=== PATIENT | male | born 1955 | race Caucasian/White ===

== ENCOUNTER 2017-10-09 11:34 | Inpatient (IN) | payer MEDICARE, BC, OTHER ==
[~2017-10-09] VITALS: Ht 185.4 cm; Wt 54.4 kg
[~2017-10-09 11:34] MED LIST: ADDERALL 30 MG30 MG PO; LORATIDINE 10 M10 M1 PO; PERCOCET 7.5-31 EACH; VENLAFAXINE HC150 MG PO; VENTOLIN HFA 1818 GM INH; ZPAK PO
[2017-10-09] MEDS ORDERED: TYLENOL EXTRA500 MG PO (14:25)
[2017-10-09] MEDS ORDERED: XANAX1 MG PO (14:27)
[2017-10-09] MEDS ORDERED: COLACE100 MG PO (14:29)
[2017-10-09] MEDS ORDERED: ADVAIR HFA 230M12 GM INH (14:33)
[2017-10-09] MEDS ORDERED: NICOTINE TRANSD21 M1 (14:36)
[2017-10-09] MEDS ORDERED: DUONEB 2.5-0.5 M3 ML INH (14:36)
[2017-10-09] MEDS ORDERED: OXYCODONE HCL 55 MG PO (14:38)
[2017-10-09] MEDS ORDERED: MIRALAX17 GM PO (14:39)
[2017-10-09] MEDS ORDERED: FLOMAX0.4 MG PO (14:39)
[2017-10-09 14:40] VITALS: BP 120/58
[2017-10-09] MEDS ORDERED: EFFEXOR XR75 MG PO (14:41)
[2017-10-09] MEDS ORDERED: AMBIEN 5 MG TABL5 M1 PO (14:44)
--- NOTE | 2017-10-09 18:41 | NUR ---
PT RESTS IN BED AND IS REPOSITIONED. PT EATING SUPPER NOW AND FEEDS SELF. PT ALERT AND PLESANT BUT IS [place]. DRESSING TO RT. HIP DRY AND INTACT. PT HAS VOIDED PER URINAL CLEAR YELLOW URINE. PT IS ON ROOM AIR AND DENIES SOB. PT ORIENTATED TO ROOM AND CONTROLS AND REHAB PROGRAM. PT DENIES NEEDS AT PRESENT.
[2017-10-09 20:17] VITALS: BP 98/50
--- NOTE | 2017-10-09 22:47 | NUR ---
ASSUMED CARES AT 1915. PT ALERT AND ORIENTED. WAS PLEASANT EARLER BUT AT 2200, PT TRIED TO GET OUT OF BED. PT EXPRESSED FRUSTRATION AND MADE STATEMENTS ABOUT WANTING TO LEAVE SO THAT HE COULD GO SMOKE. PT ALSO UNABLE TO REACH AND WAS GETTING UPSET. PT APPEARED TO HAVE SPILLED URINAL IN BED AND ON HIMSELF. WAS INITIALLY NOT COOPERATIVE WITH CHANGING OF BED SHEETS AND CLOTHES. PT NEEDED MUCH COAXING AND REDIRETING BEFORE AGREEABLE TO CHANGE CLOTHES AND GET BACK INTO BED. PT AGREED TO TAKING XANAX AND SO THIS WAS GIVEN. LEFT MESSAGE FOR TO CALL. PT IN BED AT THIS TIME. WILL CONTINUE TO MONITOR.
[2017-10-10 04:10] LABS: HEMATOCRIT 28.5 % (42.0-52.0); HEMOGLOBIN 9.4 gm/dL (14.0-18.0); MCH 26.3 pg (26.0-34.0); MCHC 32.8 g/dL (28.0-37.0); MCV 80.3 fL (80.0-100.0); MPV 7.4 fl. (7.2-11.1); RBC 3.55 mil/uL (4.50-6.00); RDW-CV 17.5 % (10.5-14.5); WBC 13.7 thou/uL (4.0-11.0)
[2017-10-10 04:25] LABS: CALCIUM 8.2 mg/dL (8.5-10.1); CREATININE 0.7 mg/dL (0.6-1.3)
--- NOTE | 2017-10-10 05:17 | NUR ---
PT SLEPT REST OF THE NIGHT AFTER XANAX GIVEN. REFUSED NIGHT TIME NEB TX. C/O BACK PAIN. TAKES PILLS WHOLE WITHOUT ISSUES. HE IS A MOD ASSIST WITH GAIT BELT AND WALKER. S/P RIGHT HIP FRACTURE. WBAT RLE. POSTERIOR HIP PRECAUTIONS. DRESSING TO RIGHT HIP INTACT. RIGHT ELBOW ABRASION. DRESSING WAS CHANGED AND PICTURE TAKEN. HAS OWN KNEE HIGH TEDS THAT WERE REMOVED AT HS. PT USED URINAL AND STAFF EMPTIED. CALL LIGHT IN REACH AND BED ALARM ON.
[2017-10-10 07:46] VITALS: BP 109/57
[2017-10-10 07:59] VITALS: BP 109/57
--- NOTE | 2017-10-10 15:33 | NUR ---
I have reviewed the documentation by ROBBIE FRAGOSO from 10/10/17 to 10/10/17 and I concur with it. CARO PRESTON
--- NOTE | 2017-10-10 15:37 | NUR ---
I have reviewed the documentation by ROBBIE FRAGOSO from 10/10/17 to 10/10/17 and I concur with it. CARO PRESTON
--- NOTE | 2017-10-10 17:09 | NUR ---
PT HAS BEEN UP TO RECLINER AND CALLS FOR ASSIST NEEDED.PT TRANSFERRS WITH MIN ASSIST OF 1,WALKER AND GAITBELT. DRESSING TO RT. HIP DRY AND INTACT.MEPLIX TO RT. SKIN TEAR ELBOW INTACT. PRN FOR PAIN GIVNE WITH GOOD EFFECT. PT VOIDS WELL PER URINAL. PT TOLERATES MEALS AND EATS IN DINNINGROOM. PT ALERT AND ORIENTATED BUT IS LIME AND THIS CAN CAUSE HIM TO NOT UNDERSTAND DIRECTIONS. PT HAS WORKED WITH THERAPIES TODAY AND VISITED WITH . HAS BROUGHT IN PT'S ADDEREL MEDICATION FROM HOME WITH PHARMACY TO CONFIRMED MED. PT ALERT AND ORIENTATED AND ABLE TO VOICE NEEDS.
[2017-10-10 20:33] VITALS: BP 101/57
--- NOTE | 2017-10-10 20:55 | NUR ---
RESTING QUIETLY IN BED. LOOSE COUGH. SWALLOWS SPUTUM. TOOK MEDS WHOLE WITH WATER. RIGHT HIP DRESSING INTACT WITH MODERATE AMOUNT OF DRIED DRAINAGE. URINAL AND CALL LIGHT WITHIN REACH. STATES SOME RELIEF FROM PAIN MEDS GIVEN AT END OF DAY SHIFT. 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 MENTHOLATUM APPLIED TO BACK.
[2017-10-11 05:06] LABS: HEMATOCRIT 24.5 % (42.0-52.0); HEMOGLOBIN 8.3 gm/dL (14.0-18.0); MCH 27.1 pg (26.0-34.0); MCV 79.8 fL (80.0-100.0); MPV 7.4 fl. (7.2-11.1); RBC 3.07 mil/uL (4.50-6.00); RDW-CV 17.4 % (10.5-14.5); WBC 9.9 thou/uL (4.0-11.0)
--- NOTE | 2017-10-11 05:09 | NUR ---
RESTED QUIETLY UNTIL ABOUT 0450. INCONTINENT OF URINE WHICH SPILLED OVER TO PJ'S AND INCONTINENT PAD. NO FURTHER C/O PAIN. HOURLY ROUNDING IN PROGRESS.
[2017-10-11 05:12] LABS: ALBUMIN 1.7 g/dL (3.4-5.0); CALCIUM 7.9 mg/dL (8.5-10.1); CREATININE 0.8 mg/dL (0.6-1.3); POTASSIUM 4.6 mmol/L (3.5-5.1); TOTAL BILIRUBIN 0.2 mg/dL (<0.1-1.0)
[2017-10-11 07:59] VITALS: BP 94/73
--- NOTE | 2017-10-11 15:11 | NUR ---
I have reviewed the documentation by ROBBIE FRAGOSO from 10/11/17 to 10/11/17 and I concur with it. CARO PRESTON
[2017-10-11 15:17] LABS: % SATURATION 12 % (20-39); IRON 18 ug/dL (50-175)
--- NOTE | 2017-10-11 16:32 | NUR ---
SW met with pt to review team conference summary. Plan for pt to remain on rehab and participate in therapies and for team to reassess pt length of stay during team conference next Wednesday 10/18. Pt in agreement with plan. SW to continue to follow to assist with safe dc planning.
--- NOTE | 2017-10-11 17:58 | NUR ---
ASSUMED CARE AT 0730 PATIENT ALERT/ORIENTED, UP WITH ASSIST OF ONE AND WALKER/GAIT BELT. PAIN MEDS GIVEN PRN FOR CHRONIC BACK PAIN, BED/CHAIR ALARMS IN PLACE, DRESSING TO RIGHT HIP C/D/I, HOURLY ROUNDING COMPLETED, TO DINING ROOM FOR MEALS, PARTICIPATED IN ALL THERAPIES TODAY. CALL LIGHT IN REACH. CONTINUE WITH CURRENT PLAN OF CARE
[2017-10-11 20:00] VITALS: BP 113/59
--- NOTE | 2017-10-12 05:09 | NUR ---
ASSUMED PT CARE AT 1930, PT ALERT AND ORIENTED X4, POLITE AND COOPERATIVE WITH CARES. TAKES MEDS WHOLE WITH WATER. PRN PAIN MEDICATIONS FOR CHRONIC BACK PAIN. DRESSING TO RIGHT HIP C/D/I. PT INCONTINENT ONCE. 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 PRN MYLANTA X1 FOR INDIGESTION WITH GOOD RESULTS. CALL LIGHT AND FREQUENTLY USED ITEMS WITHIN REACH. HOURLY ROUNDING IN PROGRESS, WILL CONTINUE TO MONITOR.
[2017-10-12 08:12] VITALS: BP 98/48
[2017-10-12 20:10] VITALS: BP 106/54
--- NOTE | 2017-10-13 05:52 | NUR ---
Alert and oriented x 4 but has some forgetfulness. Rt hip mepilex dressing is dry and intact. He has a history of RLL lobectomy from lung CA, he was recieving radiation treatments which are currently on hold until after this hospitalization. He needs help voiding in urinal. This nightshift he was incontinent of urine, coccyx was red,barrier cream applied. He does have rt hip pain and chronic back pain he had oxycodone x 2. He does walker with assist and gait belt and walker. He has slept well.
[2017-10-13 08:09] VITALS: BP 101/66
--- NOTE | 2017-10-13 15:55 | NUR ---
PT RESTS IN BED NOW AND IS REPOSITIONED OFF RT.BUTTOX WITH WEDGE. DRESSING TO RT. ELBOW CHANGED WITH AREA CLEANSED WITH SALINE AND APPEARS TO BE HEALING WELL. DRESSING TO RT.HIP DRY AND INTACT. PRN FOR PAIN GIVEN WITH GOOD EFFECT PER PT REQUEST. PT AMBULATES WITH STEADY GAIT, UP WITH GAITBELT, WALKER AND MIN ASSIST OF 1. PT HAS BEEN INCONTINENT OF BLADDER WITH URGENCY, NOT FEELING NEED TO VOID AND THEN STARTS VOIDING WHEN REMOVING PANTS TO SIT ON COMMODE. PT ASSISTED WITH CHANGING JEANS AND BREIF AND IS ENCOURAGED TO CUT BACK ON COFFEE INTAKE. PT HAS HAD LARGE FORMED BM THIS AFTERNOON AND IS ABLE TO CLEANSE SELF. PT IS ALERT AND ORIENTATED AND REMEMBERS TO CALL FOR ASSIST WITH TRANSFERRS. PT CONTINUES TO PROGRESS TOWARDS GOALS AND HOURLY ROUNDING CONTINUES.
[2017-10-13 20:10] VITALS: BP 95/48
[2017-10-14 04:34] LABS: HEMATOCRIT 22.6 % (42.0-52.0); HEMOGLOBIN 7.3 gm/dL (14.0-18.0); MCH 26.2 pg (26.0-34.0); MCHC 32.5 g/dL (28.0-37.0); MCV 80.5 fL (80.0-100.0); RBC 2.8 mil/uL (4.50-6.00); RDW-CV 17.8 % (10.5-14.5); WBC 13.7 thou/uL (4.0-11.0)
[2017-10-14 04:48] LABS: CALCIUM 8.2 mg/dL (8.5-10.1); CREATININE 0.7 mg/dL (0.6-1.3)
--- NOTE | 2017-10-14 05:15 | NUR ---
ASSUMED PT CARE AT 1930. PT ALERT AND ORIENTED X4, POLITE AND COOPERATIVE WITH CARES. PT S/P RIGHT HIP REPAIR. DRESSING TO RIGHT HIP DRY AND INTACT, SMALL AMT OF DRIED DRAINAGE. PRN PAIN MEDICATION GIVEN PER PT REQUEST ALONG WITH XANEX AT HS. PT TURNED Q2, REDNESS TO COCCYX, BARRIER CREME APPPLIED. PT INCONTINENT TWICE THIS SHIFT. USES CALL LIGHT APPROPRIATELY. CALL LIGHT AND FREQUENTLY USED ITEMS WITHIN REACH. HOURLY ROUNDING IN PROGRESS, WILL CONTINUE TO MONITOR.
[2017-10-14 07:36] VITALS: BP 93/49
--- NOTE | 2017-10-14 16:55 | NUR ---
ASSUMED CARE AT 0730 PATIENT ALERT/ORIENTED, UP WITH ASSIST OF ONE AND WALKER PAIN MED GIVEN FOR RIGHT HIP/BACK PAIN WITH FAIR RESULTS. DRESSING TO RIGHT HIP CLEAN/DRY/INTACT. HOURLY ROUNDING COMPLETED, TO DINING ROOM FOR MEALS, BED/CHAIR ALARMS IN PLACE, CALL LIGHT IN REACH, PARTICIPATED IN ALL THERAPIES TODAY. CONTINUE WITH CURRENT PLAN OF CARE
--- NOTE | 2017-10-14 20:05 | NUR ---
RESTING QUIELTY IN BED AND WATCHING TV. DEPRESSED AFFECT. STATES WANTS TO GET HOME SO CAN RESUME RADIATION TREATMENTS. PAIN MEDS GIVEN FOR C/O BACK PAIN. MENTHOLATUM OINTMENT ALSO APPLIED. TOOK MEDS WHOLE ONE TO TWO AT A TIME WITH WATER. DECLINED OFFER OF A SNACK.
[2017-10-14 20:16] VITALS: BP 95/50
[2017-10-15 04:13] LABS: HEMATOCRIT 22.7 % (42.0-52.0); HEMOGLOBIN 7.4 gm/dL (14.0-18.0); MCHC 32.7 g/dL (28.0-37.0); MCV 79.7 fL (80.0-100.0); MPV 6.9 fl. (7.2-11.1); RBC 2.85 mil/uL (4.50-6.00); RDW-CV 17.3 % (10.5-14.5); WBC 11.7 thou/uL (4.0-11.0)
[2017-10-15 04:23] LABS: CALCIUM 8.2 mg/dL (8.5-10.1); CREATININE 0.8 mg/dL (0.6-1.3); MAGNESIUM 1.9 mg/dL (1.8-2.4); POTASSIUM 4.1 mmol/L (3.5-5.1)
--- NOTE | 2017-10-15 05:15 | NUR ---
INCONTINENT X 4 THROUGHOUT THE SHIFT. NITO CARE GIVEN. MOISTURE BARRIER APPLIED TO COCCYX AREA. SPIRITS IMPROVED. HOURLY ROUNDING IN PROGRESS.
[2017-10-15 07:05] VITALS: BP 118/58
--- NOTE | 2017-10-15 07:30 | NUR ---
0730 ASSUMED CARE OF PT. PLEASE SEE DOCUMENTED ASSESSMENT. PT IS AXOX4. PT STATED HE WAS DEPRESSED B/CAUSE HE ISN'T ABLE TO FINISH HIS RADIATION AT THIS TIME D/T HIS HIP SURGERY. PT STATED, "I'D RATHER BE IN MY W/CHAIR AT HOME THAN HERE." MUCH REASSURANCE, THERAPEUTIC SUPPORT, AND SUPPORT PROVIDED. GOALS THIS SHIFT ARE TO: INCREASE ACTIVITY TOLERATED, PROMOTE GOOD NUTRITION FOR HEALING, AND TO ASSIST W/BATHING.
--- NOTE | 2017-10-15 18:23 | NUR ---
OUTCOME SUMMARY: PROGRESSING TOWARDS GOALS. PT ASSISTED W/BATHING/GROOMING/DRESSING THIS SHIFT. GOOD APPETITE, WILL DRINK BOOST WHEN PROVIDED. INCONTINENT OF URINE THIS AM, BUT ABLE TO USE THE URINAL W/SUPERVISION X2 LATER IN THE SHIFT. PT SPIRITS UP AFTER THERAPEUTIC COMMUNICATION PROVIDED EARLY THIS AM. OVERALL PROGNOSIS: FAIR.
[2017-10-15 19:30] VITALS: BP 117/61
--- NOTE | 2017-10-15 20:15 | NUR ---
SITTING UP IN RECLINER. IN GOOD SPIRITS. PT INSISTED DEPENDS WERE DRY BUT THEY WERE WET. NITO CARE PROVIDED. BARRIER CREAM APPLIED TO COCCYX AREA WHICH IS RED AND OPEN. LUNGS COARSE. LOOSE COUGH. PT STATES COUGH IS NON PRODUCTIVE. NO C/O SHORTNESS OF BREATH. PAIN MEDS GIVEN FOR C/O SORE BACK, MAINLY IN COCCYX AREA. TOOK MEDS WHOLE ONE AT A TIME WITH WATER. ASSISTED PT WITH LYING ON HIS SIDE.
--- NOTE | 2017-10-16 05:54 | NUR ---
RESTED QUIETLY. UNABLE TO TOLERATE LAYING ON HIS SIDE. WAFFLE CUSHION PLACE UNDER PT TO RELIEVE PRESSURE TO COCCYX. PAIN MED GIVEN X ONE FOR C/O BACK PAIN WITH RELIEF. USED URINAL X 3. INCONTINENT OF URINE BUT LESS SO THAN PREVIOUS NIGHT. HOURLY ROUNDING IN PROGRESS.
[2017-10-16 08:24] VITALS: BP 98/56
--- NOTE | 2017-10-16 15:50 | NUR ---
WOUND NURSE: PATIENT SEEN TO ADDRESS SMALL CIRCIFORM SKIN LESION ON THE SACRUM MEASURING 0.5 X 0.5 CM SKIN LAYER IS INTACT BUT DARK RED AND NONBLANCHEABLE. APPLIED MARATHON SKIN PROTECTANT TO THE SITE. THIS LESION WAS NOT OPEN OR DRAINING. PATIENT UNDERSTANDS IMPORTANCE OF OFFLOADING THIS SITE TO PREVENT DEVELOPMENT OF A WOUND.
--- NOTE | 2017-10-16 16:05 | NUR ---
PT HAS PARTICIPATED WITH THERAPIES AND CALLS FOR ASSIST NEEDS. PT IS TAKEN TO BATHROOM Q2 AND PRN.PT HAS STRESS INC WITH BREIFS CHANGED ADN PERICARE GIVEN. WOUND NURSE HERE THIS AFTERNOON AND NOVATHON LIQUID APPLIED TO ABRAISED AREAS OF SACRUM FOR PROTECTION.PT TOLERSTED WELL. PRN FOR BACK PAIN GIVEN X1 TODAY WITH GOOD EFFECT. PT REMAINS ALERT AND ORIENTATED AND HAS VISITED WITH . PT AMBULATES WITH GAITBELT AND 1 ASSIST WITH WALKER AND FAIRLY STEADY GAIT. PT CONTINUES TO PROGRESS TOWARDS GOALS AND HOURLY ROUNDING CONTINUES.
[2017-10-16 19:44] VITALS: BP 98/52
--- NOTE | 2017-10-16 20:10 | NUR ---
ASLEEP IN RECLINER. TEARFUL. STATES IS UPSET WITH HIM. WORDS OF ENCOURAGEMENT OFFERED. TRANSFERRED FROM CHAIR TO BED WITH SBA, GAITBELT, WALKER. BRIEFS DRY. TOOK MEDS WHOLE ONE AT A TIME WITH WATER. PLACED WAFFLE CUSHION IN BED UNDER PT'S BUTTOCKS TO REDUCE PRESSURE. PT UNABLE TO TOLERATE LAYING ON HIS SIDE.
[2017-10-17 04:49] LABS: HEMATOCRIT 25.9 % (42.0-52.0); HEMOGLOBIN 8.6 gm/dL (14.0-18.0); MCH 26.3 pg (26.0-34.0); MCHC 33.2 g/dL (28.0-37.0); MCV 79.1 fL (80.0-100.0); MPV 7.1 fl. (7.2-11.1); NUCLEATED RBCS 0 /100WBC; RBC 3.28 mil/uL (4.50-6.00); RDW-CV 17.3 % (10.5-14.5); WBC 13.3 thou/uL (4.0-11.0)
[2017-10-17 04:59] LABS: CALCIUM 8.1 mg/dL (8.5-10.1); CREATININE 0.8 mg/dL (0.6-1.3); PLATELET COUNT* 507 thou/uL (150-400); POTASSIUM 4.5 mmol/L (3.5-5.1)
--- NOTE | 2017-10-17 05:56 | NUR ---
INCONTINENT OF URINE X 2 AND USED URINAL X ONE. PAIN MEDS GIVEN FOR C/O BACK PAIN. HOURLY ROUNDING IN PROGRESS.
[2017-10-17 06:08] LABS: ABSOLUTE LYMPHOCYTES 1.9 thou/uL (0.8-5.3); ABSOLUTE MONOCYTES 1.9 thou/uL (0.0-1.2); ABSOLUTE NEUTROPHILS 9.6 thou/uL (1.6-8.1); ANISOCYTOSIS 1+; PLATELET ESTIMATE INCREASED; POIKILOCYTOSIS 1+
[2017-10-17 07:57] VITALS: BP 120/51
--- NOTE | 2017-10-17 18:30 | NUR ---
PT HAS WORKED WITH THERAPIES AND IS ALERT AND ORIENTATED. PRN FOR BACK PAIN GIVNE WITH GOOD EFFECT DURING DAY. DRESSING TO RT.HIP INCISION CHANGED WITH ORTHO DOCTOR AND AWARE. SURGERY WILL BE AT 14 DAYS ON MONDAY. X-RAYS TO BE TAKEN AND SENT TO 'S OFFICE. PT CONTINENT OF BLADDER TODAY BUT IS SAD ABOUT HAVING EPISODES OF INCONTINENCE AND PLANS TO PARTICIPATE WITH B+B Q2 HOURS TO STAY CONTINENT OF BLADDER. PT ALSO SAD WITH THOUGHTS OF LOOKING OLDER.PT CONTINUES TO WORK TOWARDS GOING HOME TO CONTINUE TREATMENTS FOR LT LUNG CANCER. PT PROGRESSES TOWARDS GOALS AND HOURLY ROUNDING CONTINUES.PT AMBULATES WITH WALKER AND MIN TO SBA.
[2017-10-17 20:30] VITALS: BP 94/31
--- NOTE | 2017-10-18 00:27 | NUR ---
ASSUMED CARE @ 1939-10/17-MONDAY.SITS IN RECLINER W/ LE'S UP APPEARS SLEEPING BUT WOKE UP.CHAIR ALARM ALREADY ON @ 1939.HOB UP IN BED.WAFFLE CUSHION IN BED UNDER BUTTOCK.HAS ABRASION SACRUM W/ MARATHON DRSG.REFUSED TO TURN.HEELS OFF BED @ 2019.BED ALARM PUT ON @ 2019.RIGHT ELBOW W/ MEPILEX DRSG.SUSAN SMALL OINT APPLIED TO BACK @ 2029.TEMP @ 2029-99.0 ORAL.TEMP RE-CHECKED @ 2219-98.8 ORAL. 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
[2017-10-18 04:51] LABS: ABSOLUTE BASOPHILS 0.1 thou/uL (0.0-0.2); ABSOLUTE EOSINOPHILS 0.2 thou/uL (0.0-0.7); ABSOLUTE LYMPHOCYTES 1.4 thou/uL (0.8-5.3); ABSOLUTE MONOCYTES 1.9 thou/uL (0.0-1.2); ABSOLUTE NEUTROPHILS 8.5 thou/uL (1.6-8.1); EOSINOPHILS 1.6 %; HEMATOCRIT 24.6 % (42.0-52.0); HEMOGLOBIN 8.2 gm/dL (14.0-18.0); LYMPHOCYTES 11.4 %; MCH 26.4 pg (26.0-34.0); MCHC 33.3 g/dL (28.0-37.0); MCV 79.2 fL (80.0-100.0); MONOCYTES 15.5 %; MPV 7.1 fl. (7.2-11.1); NUCLEATED RBCS 0 /100WBC; PLATELET COUNT* 530 thou/uL (150-400); POLYS 70.5 %; RDW-CV 17.6 % (10.5-14.5)
[2017-10-18 04:54] LABS: CALCIUM 8.3 mg/dL (8.5-10.1); CREATININE 0.8 mg/dL (0.6-1.3); POTASSIUM 4.8 mmol/L (3.5-5.1)
--- NOTE | 2017-10-18 05:45 | NUR ---
SLEEPING SINCE -.ATE ALL CORN FLAKES W/ 2% MILK HS SNACKS. BIOMETRICS HEAD TOILETING PATIENT 4X DURING NIGHT @ 2200,0100,0336 & 0523-TO PREVENT URINE INCONTINENCE.NOTED DURING ASSESSMENT @ 2029-SMALL,DRY,BROWN ABRASION LEFT HEEL-LEFT ATILIO.PICTURE TAKEN @ 0330 LEFT HEEL.FOR RIGHT HIP XRAY TODAY-.X RAY REPORT TO FAX & X RAY DISC TO SEND TO [facility]
[2017-10-18 08:00] VITALS: BP 111/54
--- NOTE | 2017-10-18 14:53 | NUR ---
FAX OF RIGHT HIP XRAY SENT TO DR DAILEY OFFICE, DISC ON CHART TO BE SENT HOME WITH PATIENT ON DISCHARGE
--- NOTE | 2017-10-18 15:20 | NUR ---
SW met with pt to review team conference summary. Plan for pt to dc next Wednesday 10/25 after another team conference. Pt to dc home with and have private duty services and other family members be with pt to provide supervision and assistance when pt is at work. SW to follow to order DME and arrange HH services. SW spoke with pt who is in agreement with plan as well as pt. Pt also mentioned that she will be setting up pt pill box at home and making sure that pt takes his medicine correctly. JACINDA mentioned private duty agencies may be able to assist with setting up [facility] Benefits and pt plans to call agencies as well as continue to check with [facility]. No other concerns or needs expressed at this time.
--- NOTE | 2017-10-18 16:38 | NUR ---
ASSUMED CARE AT 0730 PATIENT ALERT/ORIENTED, PAIN MEDS GIVEN FOR CHRONIC BACK PAIN WITH FAIR RELIEF, UP WITH STANDBY ASSIST, WALKER AND GAIT BELT, TO DINING ROOM FOR MEALS, HOURLY ROUNDING COMPLETED, BED/CHAIR ALARMS IN PLACE, CALL LIGHT IN REACH, PARTICIPATED IN ALL THERAPIES. CONTINUE WITH CURRENT PLAN OF CARE
--- NOTE | 2017-10-18 19:40 | NUR ---
SITTING UP IN RECLINER VISITING WITH A FEMALE VISITOR. IN GOOD SPIRITS. PAIN MEDS GIVEN FOR C/O BACK PAIN. TOOK PILLS WHOLE TWO AT A TIME WITH WATER.
[2017-10-18 20:09] VITALS: BP 97/47
--- NOTE | 2017-10-19 05:43 | NUR ---
NO FURTHER C/O PAIN. INCONTINENT OF URINE X ONE. USED URINAL X ONE WITH ASSISTANCE AND X ONE INDEPENDENTLY. HOURLY ROUNDING IN PROGRESS.
[2017-10-19 08:17] VITALS: BP 108/54
--- NOTE | 2017-10-19 16:31 | NUR ---
ASSUMED CARE AT 0730, PATIENT ALERT/ORIENTED, PAIN MEDS GIVEN X 2 FOR CHRONIC BACK PAIN WITH FAIR RELIEF, UP WITH WALKER/GAIT BELT, STANDBY ASSIST. PARTICIPATED IN ALL THERAPIES TODAY, TO DINING ROOM FOR MEALS, HOURLY ROUNDING COMPLETED. BED/CHAIR ALARMS IN PLACE, CALL LIGHT IN REACH. 35 MELISSA REMOVED FROM RIGHT HIP INCISION. STERISTIPS PLACED AND LEFT OPEN TO AIR, AREA WELL APPROXIMATED, NO DRAINAGE, NO REDNESS/WARMTH NOTED AT SITE. CONTINUE WITH CURRENT PLAN OF CARE
[2017-10-19 20:10] VITALS: BP 114/47
--- NOTE | 2017-10-20 05:04 | NUR ---
ASSUMED PT CARE AT 1930. PT ALERT AND ORIENTED X4, POLITE AND COOPERATIVE WITH CARES. PRN PAIN MEDICATION ONCE THIS SHIFT FOR CHRONIC BACK PAIN. UP WITH SBA, GAIT BELT AND WALKER TO BATHROOM TO VOID. PT USED URINAL OVERNIGHT. BED ALARM ON FOR SAFETY. USES CALL LIGHT APPROPRIATELY. CALL LIGHT AND FREQUENTLY USED ITEMS WITHIN REACH. RIGHT HIP INCISION C/D/I, STERISTRIPS IN PLACE. NO REDNESS OR WARMTH AT SITE.
[2017-10-20 07:30] VITALS: BP 115/52
[2017-10-20 08:00] VITALS: BP 115/52
--- NOTE | 2017-10-20 18:29 | NUR ---
ASSUMMED CARE OF PT AT 0730, PT ALERT AND ORIENTED, PT TRANSFERS WITH MIN/SBA GB AND WALKER, INCISION C/D/I, COMPLAINS OF PAIN IN LOW BACK, MEDICATED PER ORDER, LIDOCAINE PATCH TO LOW BACK, TAKING FOOD AND FLUIDS WELL, UP IN CHAIR ALL SHIFT, REPOSTIONED, WAFFLE CUSHION TO CHAIR, BARRIER OINTMENT APPLIED TO ABRASION ON COCCYX, PARTICIPATED IN ALL THERAPIES, HOURLY ROUNDING COMPLETED, ASSESSMENT COMPLETED, WILL CONTINUE TO MONITER.
[2017-10-20 20:06] VITALS: BP 106/53
--- NOTE | 2017-10-21 05:17 | NUR ---
ASSUMED PT CARE AT 1930. PT ALERT AND ORIENTED X4, POLITE AND COOPERATIVE WITH CARES. PT ALREADY IN BED AT SHIFT CHANGE. ATIVAN AT HS PER PT REQUEST. PT USED URINAL OVERNIGHT. BARRIER OINTMENT TO COCCYX. RIGHT HIP INCISION C/D/I AND WELL APPROXIMATED, STERI STRIPS IN PLACE. BED ALARM ON FOR SAFETY. CALL LIGHT AND FREQUENTLY USED ITEMS WITHIN REACH. HOURLY ROUNDING IN PROGRESS, WILL CONTINUE TO MONITOR.
[2017-10-21 07:10] VITALS: BP 130/57
--- NOTE | 2017-10-21 16:23 | NUR ---
ASSUMED CARE AT 0730. ALERT ORIENTED PLEASANT COOPERATIVE. HX OF RT. HIP FX INCISION HEALED STERI STRIPS IN PLACE. TRANSFERS WITH SBA G BELT WALKER AND AMBULATES TO BR TO VOID BEFORE BREAKFAST. MEDICATED WITH PRN PAIN MED X 2 FOR RT. LOW BACK AND HIP PAIN PER PT. REQUEST. PARTICIPATING IN THERAPIES TODAY. TO DR FOR MEALS APPETITE GOOD FEEDS SELF. ENCOURAGED TO WEIGHT SHIFT IN RECLINER AND TURN IN BED EVERY 2 HRS. USES CALL LIGHT APPROPRIATELY FOR ASSIST BED AND CHAIR ALARM FOR PT. SAFETY. IS BRINGING IN SUPPER FOR PT.
[2017-10-21 20:00] VITALS: BP 100/50
--- NOTE | 2017-10-22 05:11 | NUR ---
ASSUMED PT CARE AT 1930. PT ALERT AND ORIENTED X4, POLITE AND COOPERATIVE WITH CARES. PT ALREADY IN BED AT SHIFT CHANGE. NO PRN PAIN MEDICATIONS THIS SHIFT. XANAX AT HS PER PT REQUEST. PT USED URINAL OVERNIGHT. BARRIER OINTMENT TO COCCYX. RIGHT HIP INCISION C/D/I AND WELL APPROXIMATED. BED ALARM ON FOR SAFETY. CALL LIGHT AND FREQUENTLY USED ITEMS WITHIN REACH. HOURLY ROUNDING IN PROGRESS, WILL CONTINUE TO MONITOR.
[2017-10-22 07:30] VITALS: BP 106/55
[2017-10-22 08:00] VITALS: BP 106/55
--- NOTE | 2017-10-22 16:06 | NUR ---
ASSUMED CARE AT 0730. ALERT ORIENTED PLEASANT COOPERATIVE. HX OF RT. HIP FX INCISION HEALING EQUITIES ANALYST WITH STERI STRIPS. PT. HAS HX OF TX FOR CANCER OF THE LUNG. TRANSFERS WITH SBA G BELT WALKER AMBULATES TO BR FOR VOIDING AND A BM THIS AFTERNOON. ABLE TO DO HYGEINE AND CLOTHING ADJUSTMENTS. USES CALL LIGHT APPROPRIATELY FOR ASSIST BED CHAIR ALARM FOR PT. SAFETY. PT. HAS RESTED X 2 IN BED ON RT. SIDE TO PREVENT PRESSURE TO SACRAL AREAS. EDUCATED PT. REGARDING IMPORTANCE OF RELIEF OF PRESSURE TO BONY PROMINENCES. APPETITE GOOD FEEDS SELF TAKES MEDS WITHOUT DIFFICULTY. MEDICATED X 2 FOR RT. LOWER BACK PAIN PER PT. REQUEST. TO FOR MEALS.
[2017-10-22 20:00] VITALS: BP 104/48
--- NOTE | 2017-10-23 05:24 | NUR ---
ASSUMED CARES AT 1920. PT ALERT AND ORIENTED. PLEASANT. S/P RIGHT HIP FRACTURE. RLE WBAT. OXY IR GIVEN FOR PAIN AND XANAX GIVEN PER PT REQUEST. HE IS A SBA WITH GAIT BELT AND WALKER. UP TO BATHROOM. DID OWN CARES. USED URINAL DURING THE NIGHT WELL AND RN EMPTIED. RIGHT HIP INCISION WITH STERI STRIPS PLASTERER SPOT. RIGHT ELBOW DRESSING INTACT. RED AREA TO COCCYX. PT INFORMED OF IMPORTANCE OF STAYING OFF BOTTOM. PT VERBALIZED UNDERSTANDING BUT REFUSED WEDGE PLACEMENT AND SAID THAT HE COULD TURN HIM SELF. SLEPT WELL MOST OF THE NIGHT. USED CALL LIGHT APPROPRIATELY. BED ALARM ON.
[2017-10-23 07:30] VITALS: BP 102/59
--- NOTE | 2017-10-23 15:47 | NUR ---
SW met with pt to discuss dc planning for home with , assistance and HH services on Wednesday 10/25. Pt requested for SW to discuss with pt again as well. SW called and spoke with pt to confirm what SW and pt had discussed last week and dc planning still agreeable with no concerns or questions from pt . JACINDA ordered rolling walker from [facility] and spoke with Dottie who checked benefits and approved for FWW to be issued. SW discussed HH services and pt/family preference for [facility]. JACINDA faxed referral to [phone]. SW to fax final orders upon dc. SW to continue to follow.
--- NOTE | 2017-10-23 16:11 | NUR ---
ASSUMED CARE AT 0730. ALERT ORIENTED PLEASANT COOPERATIVE. HX OF RT. HIP FX WBATRLE. TRANSFERS WITH SBA G BELT WALKER AND AMBULATES TO TOILET TO VOID ABLE TO DO HYGEINE AND CLOTHING ADJUSTMENTS. PARTICIPATING IN THERAPIES THROUGHOUT THE DAY. ENCOURAGED TO WEIGHT SHIFT IN RECLINER AND HAS BEEN COMPLIANT. FEEDS SELF APPETITE GOOD. TAKES MEDS WITHOUT DIFFICULTY. USES CALL LIGHT APPROPRIATELY FOR ASSIST. BED CHAIR ALARM FOR PT. SAFETY. HERE VISITING AT LUNCH MEAL. OPTIFOAM APPLIED TO COCCYX AND PT. IS LYING ON RT. SIDE, AFTER THERAPIES COMPLETED. MEDICATED FOR RIGHT LOW BACK PAIN AT 1000 PER PT. REQUEST.
[2017-10-23 19:55] VITALS: BP 90/45
--- NOTE | 2017-10-24 05:20 | NUR ---
ASSUMED PT CARE AT 1930. PT ALERT AND ORIENTED X4, POLITE AND COOPERATIVE WITH CARES. HX OF RT HIP FX WBATRLE. UP WITH SBA, GAIT BELT AND WALKER TO BATHROOM TO VOID. USED URINAL X4 OVERNIGHT. PRN PAIN MEDICATION ONCE THIS SHIFT FOR BACK PAIN. TAKES PILLS WHOLE, ONE AT A TIME WITH WATER WITHOUT DIFFICULTY. OPTIFOAM TO COCCYX. USES CALL LIGHT APPROPRIATELY. CALL LIGHT AND FREQUENTLY USED ITEMS WITHIN REACH. BED ALARM ON FOR SAFETY. HOURLY ROUNDING IN PROGRESS, WILL CONTINUE TO MONITOR.
[2017-10-24 07:30] VITALS: BP 118/61
--- NOTE | 2017-10-24 15:04 | NUR ---
HOME MEDICATION/ADDERALL TAKEN TO PHARMACY FOR NEW SCAN BAR AFTER MEDICATION GIVEN TO PT, SCAN BAR WOULD NOT WORK. PHARMACY PLACED TWO NEW SCAN BARS FOR REFERENCE. PT TOOK MEDICATION WELL WITH WATER. MED RETURNED TO [facility].
--- NOTE | 2017-10-24 18:36 | NUR ---
ASSUMED CARES AT 0700. PT IN BED, BED IN LOW AND LOCKED POSITION. FALL PRECAUTIONS IN PLACE. CALL BUTTON AND PERSONAL ITEMS IN PT REACH, PT USES CALL BUTTON APPROPRIATELY. PT A&O X4, HRRR PER AUSCULTATION, LCTAB ON LEFT SIDE, RIGHT LUNG REMOVED FOR CANCER. VSS ON RA, AFEBRILE, LAST BM YESTERDAY. PT INCONTINENT OF BLADDER. COCCYX SORE, SCAB ATILIO AT THIS TIME. MEPILEX ON RIGHT ELBOW, DRESSING C/D/I. PT COOPERATIVE, PLEASANT. Q2 TURNS, HOURLY ROUNDING COMPLETED. PT PARTICIPATED IN THERAPIES, UP TO DINING ROOM FOR MEALS. OXYCODONE SOMEWHAT EFFECTIVE FOR PAIN IN BACK. PT UP SBA WITH GAIT BELT AND WALKER TO BATHROOM. PT PROGRESSING TOWARDS GOAL, WILL CONTINUE TO MONITOR PT PROGRESS AND STATUS. REPORT TO [facility] FOR CONTINUED CARES.
[2017-10-24 19:38] VITALS: BP 98/53
--- NOTE | 2017-10-25 05:15 | NUR ---
ASSUMED PT CARE AT 1930. PT ALERT AND ORIENTED X4, POLITE AND COOPERATIVE WITH CARES. HX OF RT HIP FX WBATRLE. UP WITH SBA, GAIT BELT AND WALKER TO BATHROOM TO VOID. USED URINAL X4 OVERNIGHT. PRN PAIN MEDICATION AT HS FOR BACK PAIN. XANAX PER PT REQUEST AT HS. COCCYX LENS MATCHER. MEPILEX TO RIGHT ELBOW, DRESSING C/D/I. PT ANTICIPATING DISCHARGE TODAY. CALL LIGHT AND FREQUENTLY USED ITEMS WITHIN REACH. HOURLY ROUNDING IN PROGRESS, WILL CONTINUE TO MONITOR.
[2017-10-25 08:38] VITALS: BP 107/56
[2017-10-25 12:48] VITALS: BP 107/56
--- NOTE | 2017-10-25 12:50 | NUR ---
Team conference held. Pt to dc home today with and support and assistance available with ADLs and mobility. RW provided through [facility]. SW faxed final orders and med list to [facility] at fax number [phone]. No other needs at this time.
[2017-10-25 12:56] VITALS: BP 107/56
[2017-10-25 14:03] VITALS: BP 107/56
--- NOTE | 2017-11-14 14:42 | PLAN ---
[facility] [address] [place] [address] REHAB UNIT PLAN OF CARE Name: RIVKA MORALES Room: [address] IN [facility]#: [id number] Admission: 10/09/17 Attend Phys: Karin Ellington DO Discharge: 10/25/17 Date of : 53 Report #: [id number] THIS REPORT FOR: //name// CC: Karin Ellington CARINE VALLADARES This is a 62-year-old male admitted to inpatient rehabilitation status post right hip fracture post-total hip arthroplasty on 10/04/2017 after a fall from standing height in his home. He also does have a history of small cell lung cancer. Rehabilitation prognosis is fair. Medical prognosis is fair. Estimated length of stay is 12-14 days with discharge disposition to the home setting where he lives in a house, has supervision and assistance from his who is present at the bedside during this evaluation. Previous level of function was independent with activities of daily living. Current level of function is [id number] assistance of 1-2 depending on therapy, activity and time of day. The patient has needs in physical and occupational therapy as well as daily medical care as well. Physical therapy will see the patient 60-90 minutes per day, 5 days per week, working on upper and lower body strength, balance, coordination, navigation. Occupational therapy will work with the patient 60-90 minutes per day, 5 days per week, working on upper and lower body strength, balance, coordination, navigation, bathing, dressing, and toileting. This is an overall plan of care, may change from time to time. We will team weekly and make changes to plan of care as needed. <ELECTRONICALLY SIGNED> By: Karin Ellington DO 11/14/17 1442 [id number] 1910Karin Ellington DO /nt
--- NOTE | 2017-11-14 14:42 | D ---
[facility] [address] [place] [address] DISCHARGE SUMMARY Name: RIVKA MORALES Room: [address] M.R.#: [id number] Admission: 10/09/17 Attend Phys: Karin Ellington DO Discharge: 10/25/17 Date of : 53 Report #: [id number] THIS REPORT FOR: //name// CC: Karin VALLADARES DATE OF SERVICE: 10/25/2017 DISCHARGE DIAGNOSES: Debility, post-acute on chronic respiratory failure with bronchitis. DISCHARGE DISPOSITION: To home with home health, PT, OT and nursing. He will follow with his primary care physician within one week, with his radiation oncologist at as needed, and recommending Dr. Mart for neuro consult given some ongoing and previously noted memory changes and possibly dementia. Notifications for physician were given. Maintain a regular diet. Monitor weight gain. Fall precautions. He will need some supervision. Medication reconciliation was completed by myself and is available in the MAR. DISCHARGE PHYSICAL EXAMINATION: GENERAL: Alert, oriented, in no apparent distress. VITAL SIGNS: Reviewed and are stable. HEENT: Head: Atraumatic, normocephalic. Pupils equal, round, reactive. ABDOMEN: Soft, nontender, nondistended. NEUROLOGIC: Cranial nerves 2-12 are grossly intact. No focal neuro deficits, 5/5 strength in the bilateral upper and lower extremities. SKIN: Warm and dry. No rashes or lesions noted. <ELECTRONICALLY SIGNED> By: Karin Ellington DO 11/14/17 [id number] [id number] Ellington DO /nt
--- NOTE | 2017-11-14 14:42 | H ---
[place] [address] HISTORY AND PHYSICAL Name: RIVKA MORALES Room: [address] IN ..#: [id number] Admission: 10/09/17 Attend Phys: Karin Ellington DO Discharge: 10/25/17 Date of : 53 Report #: [id number] THIS REPORT FOR: //name// CC: Karin VALLADARES DATE OF SERVICE: 10/09/2017 HISTORY OF PRESENT ILLNESS: This is a 62-year-old male admitted to inpatient rehabilitation to facilitate safe discharge home, status post acute hospitalization beginning on 10/04/2017 for right hip fracture post fall from standing height in the home, landing on the right side. He underwent right total hip arthroplasty on 10/06/2017, did well in the postoperative period, has needs in physical and occupational therapy as well as speech and language pathology. Also, has weightbearing as tolerated on the right lower extremity, has posterior total hip precautions, also has small cell lung cancer that he is being treated for with radiation at , but will be on hold during the rehabilitative period. He is participating in physical and occupational therapies, no significant changes since the preadmission screening. Previous level of function was independent to modified independent with activities of daily living. Current level of function is minimum assistance of 1-2 depending on therapy, activity and time of day. Comprehension, expression, social interaction are all within normal limits. Estimated length of stay is 12-14 days with discharge disposition to the home setting where he does have supportive family including a spouse that can provide supervision and assistance where they do live in a home. PAST MEDICAL HISTORY: COPD, ADD, anxiety, depression, chronic back pain, history of a brain tumor, history of small cell lung cancer, tobacco dependence, left upper lobe neoplasm, history of falls, severe osteopenia, pleural effusions and pneumonia. PAST SURGICAL HISTORY: Brain tumor excision, right lung lobectomy back surgery, mandible surgery, left elbow surgery, umbilical hernia repair and tonsillectomy. MEDICATIONS: Reviewed, reconciled by myself and are available in the MAR. ALLERGIES: PENICILLIN, FAMOTIDINE AND LEVAQUIN ARE NOTED. SOCIAL HISTORY: He does have 1 pack per day history of smoking. FAMILY HISTORY: Positive for cancer and depression. REVIEW OF SYSTEMS: A 14-point review of systems is done today, is negative except as mentioned in HPI. Specifically, no fever, chest pain, shortness of breath, abdominal pain or distention, change in bowel [place] [address] HISTORY AND PHYSICAL Name: RIVKA MORALES Room: [address]#: [id number] Admission: 10/09/17 Attend Phys: Karin Ellington DO Discharge: 10/25/17 Date of : 53 Report #: [id number] PHYSICAL EXAMINATION: GENERAL: Alert, oriented, no apparent distress. He is frail appearing. His is present at the bedside during the history and physical. VITAL SIGNS: Reviewed and are stable. O2 per nasal cannula is noted about the nares at 2 liters. HEENT: Head atraumatic, normocephalic. Pupils equal, round, reactive. ABDOMEN: Soft, nontender, nondistended. SKIN: Warm and dry. No rashes or lesions noted. MUSCULOSKELETAL: No clubbing. A 5/5 strength in the bilateral upper and lower extremities. No significant weakness noted. ASSESSMENT: 1. Right hip fracture, status post total hip arthroplasty from fall on 10/04/2017. 2. History of small cell lung cancer, currently therapy is being held during the rehabilitative period. 3. Multiple medical comorbidities requiring acute daily medical care. PLAN: 1. Admission to inpatient rehabilitation to facilitate safe discharge home. 2. PT, OT, speech, language, case management, nursing and HIMS to make evaluations and recommendations. 3. We will team weekly and make changes to plan of care as needed. 4. Posterior hip precautions are noted. <ELECTRONICALLY SIGNED> By: Karin Ellington DO 11/14/17 [id number] Ellington DO /nt
== END 2017-10-25 15:00 | disposition home health service (06) | DRG 535 ==
LOC: EDBD → M.REH 11:34
PROVIDERS: Family Medicine; Internal Medicine; ADMIT Physical Medicine & Rehabilitation
DX: S72.001A Fracture of unspecified part of neck of right femur, initial encounter for closed fracture (principal); J96.20 Acute and chronic respiratory failure, unspecified whether with hypoxia or hypercapnia; E43 Unspecified severe protein-calorie malnutrition; C34.12 Malignant neoplasm of upper lobe, left bronchus or lung; E87.1 Hypo-osmolality and hyponatremia; Z68.1 Body mass index [BMI] 19.9 or less, adult; Z96.641 Presence of right artificial hip joint; J44.9 Chronic obstructive pulmonary disease, unspecified; F41.9 Anxiety disorder, unspecified; F98.8 Other specified behavioral and emotional disorders with onset usually occurring in childhood and adolescence; G89.29 Other chronic pain; M54.9 Dorsalgia, unspecified; M85.80 Other specified disorders of bone density and structure, unspecified site; M16.11 Unilateral primary osteoarthritis, right hip; F17.210 Nicotine dependence, cigarettes, uncomplicated; K59.00 Constipation, unspecified; R33.9 Retention of urine, unspecified; D72.829 Elevated white blood cell count, unspecified; R53.81 Other malaise; J40 Bronchitis, not specified as acute or chronic; F32.9 Major depressive disorder, single episode, unspecified; D50.9 Iron deficiency anemia, unspecified; D63.8 Anemia in other chronic diseases classified elsewhere; E83.51 Hypocalcemia; R26.9 Unspecified abnormalities of gait and mobility; Z79.899 Other long term (current) drug therapy; Z91.81 History of falling; Z87.01 Personal history of pneumonia (recurrent); Z88.0 Allergy status to penicillin; Z88.8 Allergy status to other drugs, medicaments and biological substances; W17.89XA Other fall from one level to another, initial encounter; Y93.89 Activity, other specified; Y92.098 Other place in other non-institutional residence as the place of occurrence of the external cause; Y99.8 Other external cause status; Z80.9 Family history of malignant neoplasm, unspecified; Z81.8 Family history of other mental and behavioral disorders